=== PATIENT | male | born 1985 | race Caucasian/White ===

== ENCOUNTER → 2024-12-27 | Outpatient (CLI) | payer OTHER ==
--- NOTE | 2024-12-27 08:17 | US ---
EXAMINATION TYPE: US abdomen limited DATE OF EXAM: 12/27/2024 COMPARISON: NONE CLINICAL INDICATION: Male, 39 years old with history of Limited; K42.9 UMBILICAL HERNIA WITHOUT OBSTR UCTIO; Umbilical hernia x 1 year, can protrude out about 1 inch TECHNIQUE: Grayscale with or without color Doppler imaging of the area of hernia concern. Real-time scanning was performed by the cold press loader utilizing Valsalva and additional dynamic maneuve rs to assess for hernia. Images of the contralateral side were also acquired for direct comparison. FINDINGS: Assess for hernia at location of: Umbilical Area of concern superior to umbilicus, evidence of peristalsis seen within, measures 3.3 x 2.2 x 2.7 cm, minimal change with valsalva IMPRESSION: Umbilical hernia with evidence of peristalsis suggesting bowel within the hernia. Conside r confirmation with CT imaging. [facility], , 12/27/2024 8:15 AM
== END | disposition home or self-care (01) ==
LOC: RADUSWWP 07:56
PROVIDERS: ATTEND Family Medicine
DX: K42.9 Umbilical hernia without obstruction or gangrene (principal)
CPT/HCPCS: 76705

== ENCOUNTER → 2025-01-04 | Outpatient (CLI) | payer OTHER ==
--- NOTE | 2025-01-04 11:32 | CT ---
EXAMINATION TYPE: CT abdomen pelvis w con DATE OF EXAM: 01/04/2025 11:17 AM COMPARISON: None. CLINICAL INDICATION: Male, 39 years old with history of K42.0 UMBILICA HERNIA WITH OBSTRUCTION WO ROHIT ALBERT, TECHNIQUE:CT scan of the abdomen and pelvis is performed and , patient injected with mL of . CT DLP: mGycm, Automated exposure control for dose reduction was used. FINDINGS: LUNG BASES-: No visible nodule. No infiltrate. Small hiatal hernia suggested. LIVER/GB: No calcified gallstones. No space occupying hepatic lesion. Biliary tree is of normal ca liber. Mild hepatic steatosis noted. PANCREAS: No inflammation. No distinct mass. SPLEEN: No splenic enlargement. No lesion seen. ADRENALS: No nodule. No thickening. KIDNEYS/BLADDER: No hydronephrosis. No nephrolithiasis. No distinct renal mass. Urinary bladder g rossly unremarkable. BOWEL: Normal appendix. Normal bowel caliber. No inflammation. GENITAL ORGANS: No gross abnormality. LYMPH NODES: No greater than 1cm abdominal or pelvic lymph nodes are appreciated. AORTA: No significant abnormality. OSSEOUS STRUCTURES: No significant abnormality is seen. OTHER: Fat-containing umbilical hernia measuring 2.6 x 2.7 cm. IMPRESSION: 1. Uncomplicated fat-containing umbilical hernia as noted. [facility], , 01/04/2025 11:30 AM
== END | disposition home or self-care (01) ==
LOC: RADCTMAIN 09:18
PROVIDERS: ATTEND Family Medicine
DX: K42.0 Umbilical hernia with obstruction, without gangrene (principal); K76.0 Fatty (change of) liver, not elsewhere classified
CPT/HCPCS: 74177; Q9967